=== PATIENT | female | born 1960 | race Caucasian/White ===

== ENCOUNTER 2017-03-24 10:29 | Inpatient (IN) ==
[2017-03-24] MEDS ORDERED: IPRATROPIUM/ALBUTEROL 3 ML AMPUL.NEB NEB ONE ×2 (10:38→10:45)
[2017-03-24] MEDS ORDERED: MAGNESIUM SULFATE 2 GM/50 ML BAG IV ONE (10:45)
[2017-03-24] MEDS ORDERED: AZITHROMYCIN 500 MG in DEXTROSE 5% IN WATER 250 ML IV ONE (10:45)
[2017-03-24] MEDS ORDERED: methylPREDNISolone SOD SUCC 125 MG/2 ML VIAL IV ONE (10:45)
[2017-03-24] MEDS ORDERED: DOXYCYCLINE HYCLATE 100 MG TABLET.ORL PO ONE ×2 (10:47→10:56)
[2017-03-24] MEDS ORDERED: ALBUTEROL SULFATE 5 MG/ML NEB SOLUTION BOTTLE NEB ONE (10:49)
[2017-03-24] MEDS ORDERED: MAGNESIUM SULFATE 8.12 MEQ/2 ML VIAL ONE (11:08)
--- NOTE | 2017-03-24 11:36 | XRay Report ---
CLINICAL INFORMATION: Shortness of breath and cough COMPARISON: 08/24/2016 FINDINGS: Heart size, mediastinum and pulmonary vessels are normal. Lung volumes are mildly elevated suggesting bronchitis or asthma. No infiltrates or effusions. Bones soft tissues normal IMPRESSION: Findings suggesting bronchitis or asthma. Interpreted and Authenticated by: Christiano Soto 03/24/17
[2017-03-24 11:42] LABS: Mean Cell Volume 97.7 fL (80.0-100.0); Mean Corpuscular Hemoglobin 33.3 pg (26.0-34.0); Platelet Count 219 K/mcL (140-440); RBC 4.19 M/mcL (4.00-5.20); Red Cell Distribution Width 13.1 % (11.5-14.5)
[2017-03-24 11:57] LABS: ALT/SGPT 10 U/l (0-40); Albumin 4.7 gm/dL (3.2-5.2); Albumin/Globulin Ratio 1.6 (1.0-2.3); Alkaline Phosphatase 70 U/L (39-117); Blood Urea Nitrogen 11 mg/dl (6-20)
[2017-03-24 12:03] LABS: Band Neutrophils % 1 % (0-10); Basophils % (Manual) 1 % (0-2); Lymphocytes % 17 % (15-49); Monocytes % (Manual) 12 % (1-12); Platelet Estimate NORMAL (NORMAL); RBC Morphology NORMAL (NORMAL); Segmented Neutrophils % 68 % (38-78)
--- NOTE | 2017-03-24 12:32 | Emergency Department Note ---
General Adult HPI - General Chief complaint: Shortness of Breath/Dyspnea Stated complaint: cold syptoms, SOB Time Seen by Provider: 03/24/17 10:37 Source: patient Mode of arrival: wheelchair Limitations: no limitations - History of Present Illness HPI Narrative: 56-year-old female with a 5 day history of worsening cough congestion and shortness of breath. She went to see her primary care doctor, Dr. Lebron who put her on azithromycin and a steroid. This has not been helping and in fact she has been getting worse. She comes in today very short of breath not being able to sleep well. She does endorse a history of being on oxygen but states that she is not on oxygen currently at home. - Related Data Home Medications Medication Instructions Recorded Confirmed aspirin 81 mg tablet,delayed 81 mg PO QDAY tab 11/18/14 03/24/17 release cholecalciferol (vitamin D3) 1,000 1,000 unit PO QDAY cap 11/18/14 03/24/17 unit capsule Vitamin B Complex Vit C No.3 [B 1 each PO DAILY 12/13/14 03/24/17 Complex with Vitamin C] Azithromycin [Zithromax] 250 mg PO DAILY 03/24/17 03/24/17 Lisinopril [Zestril] 5 mg PO QDAY 03/24/17 03/24/17 predniSONE [Prednisone] 10 tab PO .Complex 03/24/17 03/24/17 Previous Rx's Medication Instructions Recorded ipratropium-albuterol 0.5 mg-3 3 ml INHALATION QID PRN 90 Days 04/07/16 mg(2.5 mg base)/3 mL nebulization #1080 ml soln albuterol sulfate HFA 90 2 puff INHALATION QID PRN #18 g 08/08/16 mcg/actuation aerosol inhaler nebulizer and compressor See Dose Instructions .ROUTE 08/25/16 .MEDSUPPLY #1 each Pulse oximeter #1 each 08/29/16 fluticasone 100 mcg-vilanterol 25 1 inh INHALATION Q24H #30 each 12/11/16 mcg/dose powder for inhalation Allergies Allergy/AdvReac Type Severity Reaction Status Date / Time morphine [MORPHINE] Allergy Unknown Agitated Verified 03/19/17 16:29 Varenicline [From Chantix] AdvReac thoughts Verified 03/19/17 16:29 of hurting self Review of Systems All systems ED: reviewed and negative except as stated. Past Medical History - Past Medical History Attestation: Yes: The following information was validated with the patient. Medical history: Reports: COPD, CVA, hypertension (Did not take BP med today), TIA, other (hepatitis C) Surgical history ED: Reports: appendectomy, hysterectomy, REBECA/BSO, tonsillectomy Psychiatric history: Reports: anxiety STAGE HAND history: Reports: non-contributory - Social History smoking status: Current some day smoker Alcohol use: Reports: Occasionally Drug use: Reports: none Physical Exam Some acute distress from respiratory failure. Oxygen saturation in the 80s at rest. Initially given 1 round of DuoNeb but she is still not moving air well so we gave her an hour of continuous albuterol-breathing much better after that. Normocephalic atraumatic. Conjunctive are clear sclerae nonicteric. No nasal discharge or congestion. Oropharynx is pink and moist. Neck is supple without lymphadenopathy thyromegaly. Heart is tachycardic and rhythm no murmur appreciated. Lungs clear to auscultation bilaterally without rales but she does have significant rhonchi and wheezes after getting her albuterol. Abdomen soft nontender nondistended. No pedal edema. +2 radial pulse. Somewhat anxious secondary to difficulty breathing. Alert and oriented - General Limitations: no limitations Course Vital Signs Temperature 98.7 F 03/24/17 10:50 Pulse Rate 98 H 03/24/17 10:50 Respiratory Rate 20 03/24/17 10:50 Blood Pressure 152/98 03/24/17 10:50 Pulse Oximetry (%) 89 L 03/24/17 10:50 Temperature 98.7 F 03/24/17 10:50 Pulse Rate 102 H 03/24/17 14:29 Respiratory Rate 18 03/24/17 13:22 Blood Pressure 162/93 03/24/17 11:02 Pulse Oximetry (%) 93 03/24/17 14:29 Medical Decision Making - Medical Records Medical records reviewed: Yes I reviewed the patient's medical records. - Lab Data Lab results reviewed: Yes I reviewed the patient's lab results. Result diagrams: 03/24/17 11:14 03/24/17 11:14 Lab Results 03/24/17 03/24/17 Range/Units 11:14 11:14 WBC 5.9 (4.5-11.0) K/mcL RBC 4.19 (4.00-5.20) M/mcL Hgb 13.9 (12.0-15.0) g/dL Hct 40.9 (36.0-48.0) % MCV 97.7 (80.0-100.0) fL MCH 33.3 (26.0-34.0) pg MCHC 34.0 (31.0-36.0) g/dL RDW 13.1 (11.5-14.5) % Plt Count 219 (140-440) K/mcL MPV 7.9 (7.4-10.4) fL Total Counted 100 Seg Neutrophils % 68 (38-78) % Band Neutrophils % 1 (0-10) % Lymphocytes % 17 (15-49) % Monocytes % (Manual) 12 (1-12) % Basophils % (Manual) 1 (0-2) % Reactive Lymphocytes 1 (0-2) % Platelet Estimate Normal (NORMAL) RBC Morphology Normal (NORMAL) Sodium 142 (133-145) mmol/L Potassium 3.7 (3.3-5.1) mmol/L Chloride 100 (96-108) mmol/L Carbon Dioxide 28 (22-30) mmol/L Anion Gap 14.0 (8-16) BUN 11 (6-20) mg/dl Creatinine 0.7 (0.6-1.1) mg/dl GFR Calculation 96 Glucose 103 (70-105) mg/dL Calcium 9.7 (8.6-10.4) mg/dl Magnesium 2.0 (1.6-2.5) mg/dL Total Bilirubin 0.4 (0.0-1.0) mg/dL AST 15 (0-37) U/l ALT 10 (0-40) U/l Alkaline Phosphatase 70 (39-117) U/L Total Protein 7.6 (5.9-8.4) gm/dL Albumin 4.7 (3.2-5.2) gm/dL Globulin 2.9 (2.2-3.7) gm/dL Albumin/Globulin Ratio 1.6 (1.0-2.3) Care blood gas shows pH 7.41 PCO2 43 PO2 58 - Radiology Data Radiology results reviewed: Yes I reviewed the patient's radiology results. Chest x-ray is clear but show stigmata of COPD/asthma Disposition Pt seen by [employer]/PA only: No Clinical Impression: Acute exacerbation of chronic obstructive airways disease, Hypoxia Summary: Initially treated with doxycycline and Solu-Medrol as well as DuoNeb and albuterol as above. Significant improvement but still hypoxic on 85% at rest- on oxygen. Discussed scenario with Dr. Kerr who agreed to accept the patient for further inpatient treatment of COPD exacerbation. Disposition: Xfer As Outpt/Obs ([facility]) Condition: Fair Referrals: Antony Lebron MD [Primary Care Provider] -
--- NOTE | 2017-03-24 13:21 | Internal Med History&Physical ---
Medical - H&P: HPI Patient information: Note initiated : 03/24/17 at 1:17 pm Service Date, if different from initiated Date: [] Patient: Maryjane Gutierrez a 56 y/o F admitted on for cold syptoms, SOB. Chief Complaint: [] History of present illness: Ms. Gutierrez is a 56 year old Female with h/o copd presents ot e ER with sob x 1 week The patient notes she has been strugging with URI symptoms x 2 weeks and has been getting short of breath wheezing x 1-2 weeks. She was seen by her PCP and was placed on prednisone and zithromax and despite taking this medicatin she continued to worsen. She therefore presented to the ER for further management. 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 She also has exposure to kids who were sick. She denies taking the flu vac this season. The patient had watery eyes, sinus congestion, fatigue and malaise. cough with yellowish sputum and progressive shortness of breath over the peroid of 1-2 weeks. THe patient admits to having some headachea and nausea, but no other complaints. In the ER she was hypoxic on presentation, needing 2 L oxygen to maintain osat > 90%, she was given duonebs, HAART treatment, MAg suplhate and IV steroids, but still remained hypoxic, and having poor air entry. ABG done showed Ph 7.41/ 43/58, CXR was neg for pna, labs unremarkable. Patient was therefore admitted to the hospital for further management. All systems: reviewed and no additional remarkable complaints except as stated ( as per HPI) Medical - H&P: PMH Medical history: Medical History Transient Ischemia (Acute) CVA (cerebrovascular accident) (Acute) Pain, dental (Acute) Wrist fracture, right (Acute) Head and face pain (Acute) COPD exacerbation (Acute) Acute exacerbation of chronic obstructive airways disease (Acute) Hypoxia (Acute) Uterine malignant neoplasm (Acute) Hypoxemia (Acute) Hypertension, essential, benign (Acute 11/10/14) Depressive disorder (Acute) Chronic obstructive pulmonary disease (Acute) Carrier or suspected carrier of hepatitis C (Acute) History of breast cancer (Acute) Asthma with COPD (Acute) Anxiety disorder (Acute) Surgical history: Past Surgical History History of tonsillectomy (Acute) History of lumpectomy of right breast (Acute) History of lumpectomy of left breast (Acute) Status post partial hysterectomy (Acute) History of colonoscopy (Acute 03/16/14) History of appendectomy (Acute) Family history: reviewed and not pertinent Medical - H&P: Meds Home Medications Medication Instructions Recorded Confirmed Type aspirin 81 mg tablet,delayed 81 mg PO QDAY tab 11/18/14 03/24/17 History release cholecalciferol (vitamin D3) 1,000 1,000 unit PO QDAY cap 11/18/14 03/24/17 History unit capsule Vitamin B Complex Vit C No.3 [B 1 each PO DAILY 12/13/14 03/24/17 History Complex with Vitamin C] ipratropium-albuterol 0.5 mg-3 3 ml INHALATION QID PRN 90 Days 04/07/16 Rx mg(2.5 mg base)/3 mL nebulization #1080 ml soln albuterol sulfate HFA 90 2 puff INHALATION QID PRN #18 g 08/08/16 03/24/17 Rx mcg/actuation aerosol inhaler nebulizer and compressor See Dose Instructions .ROUTE 08/25/16 03/19/17 Rx .MEDSUPPLY #1 each Pulse oximeter #1 each 08/29/16 03/19/17 Rx fluticasone 100 mcg-vilanterol 25 1 inh INHALATION Q24H #30 each 12/11/16 Rx mcg/dose powder for inhalation Azithromycin [Zithromax] 250 mg PO DAILY 03/24/17 03/24/17 History Lisinopril [Zestril] 5 mg PO QDAY 03/24/17 03/24/17 History predniSONE [Prednisone] 10 tab PO .Complex 03/24/17 03/24/17 History Allergies Allergy/AdvReac Type Severity Reaction Status Date / Time morphine [MORPHINE] Allergy Unknown Agitated Verified 03/19/17 16:29 Varenicline [From Chantix] AdvReac thoughts Verified 03/19/17 16:29 of hurting self Medical - H&P: Exam - Constitutional Vitals: Temp Pulse Resp BP Pulse Ox 98.7 F 124 H 14 162/93 90 03/24/17 10:50 03/24/17 12:10 03/24/17 11:24 03/24/17 11:02 03/24/17 12:10 Exam: GENERAL: The patient is a well-developed, well-nourished in no apparent distress. Is alert and oriented x3. VITAL SIGNS: Reviewed and as noted elsewhere. HEENT: Head is normocephalic and atraumatic. Extraocular muscles are intact. Pupils are equal, round, and reactive to light. Nares appeared normal. Mouth appears any without lesions. Mucous membranes are moist. NECK: Normal to inspection, Supple, No lymphadenopathy or thyromegaly. LUNGS: Air entry equal on both sides but significantly diminished, colt exp wheezing and prolonged exp phase. NO . No accessory muscles of respiration, pt is speaking full sentences. HEART: Regular tachycardic rate and rhythm normal, S1 and S2 heard, no Gallop, S3 or Rub Noted, No Gross murmur heard. ABDOMEN: Soft, nontender, and nondistended. Positive bowel sounds. No hepatosplenomegaly was noted. EXTREMITIES: No cyanosis, clubbing, rash, lesions or edema. NEUROLOGIC: Cranial nerves II through XII are grossly intact. Motor and Sensory System Grossly Intact PSYCHIATRIC: Normal affect, Normal Mood. Appropriate Behavior. SKIN: No ulceration or wounds noted, No jaundice, No rash noted. Medical - H&P: Reslt - Labs CBC & Chem 7: 03/24/17 11:14 03/24/17 11:14 Labs: Short CBC 03/24/17 Range/Units 11:14 WBC 5.9 (4.5-11.0) K/mcL Hgb 13.9 (12.0-15.0) g/dL Hct 40.9 (36.0-48.0) % Plt Count 219 (140-440) K/mcL BMP 03/24/17 11:14 Sodium 142 Potassium 3.7 Chloride 100 Carbon Dioxide 28 BUN 11 Creatinine 0.7 Glucose 103 Calcium 9.7 Liver Function 03/24/17 Range/Units 11:14 Total Bilirubin 0.4 (0.0-1.0) mg/dL AST 15 (0-37) U/l ALT 10 (0-40) U/l Alkaline Phosphatase 70 (39-117) U/L Albumin 4.7 (3.2-5.2) gm/dL Medical - H&P: A/P - Narrative A/P Narrative: A/p Acute hypoxic resp failuire Acute copd exacerbation Depression HTN h/o TIA Plan Admit obs status , Telemetery monitor Duonebs q4 hrs, IV solumedrol. Doxycycline 100mg bid for now. monitor resp status closely supplement oxygen to keep osat > 90 BIPAP if patient worsens. Resume home medications. antidepressants, statin, asa and bp meds. DVT hep sq REgular diet Full Code. Social History - Tobacco smoking status: Current some day smoker - Cigarette Details per day: 10 - Alcohol alcohol intake frequency: a few times a week - Substance use substance use type: marijuana
[2017-03-24] MEDS ORDERED: IBUPROFEN 600 MG TABLET PO ONE ×2 (14:43→14:49)
[2017-03-24] MEDS ORDERED: MAGNESIUM HYDROXIDE 30 ML ORAL.SUSP PO PRN (15:02)
[2017-03-24] MEDS ORDERED: ACETAMINOPHEN 325 MG TABLET PO PRN (15:02)
[2017-03-24] MEDS ORDERED: ONDANSETRON 4 MG/2 ML VIAL IV PRN (15:02)
[2017-03-24] MEDS ORDERED: NALOXONE HCL 0.4 MG/ML VIAL IV PRN (15:02)
[2017-03-24] MEDS: 0.9 % SODIUM CHLORIDE 1,000 ML IV SCH (15:43)
[2017-03-24] MEDS: 0.9 % SODIUM CHLORIDE 10 ML SYRINGE IV SCH ×2 (15:44→22:36)
[2017-03-24] MEDS: IPRATROPIUM/ALBUTEROL 3 ML AMPUL.NEB NEB SCH ×3 (16:36→23:40)
[2017-03-24] MEDS: methylPREDNISolone SOD SUCC 125 MG/2 ML VIAL IV SCH (17:48)
[2017-03-24] MEDS: FAMOTIDINE 20 MG TABLET PO SCH (20:15)
[2017-03-24] MEDS: LORazepam 1 MG TABLET PO PRN (20:15)
[2017-03-24] MEDS: DOXYCYCLINE HYCLATE 100 MG TABLET.ORL PO SCH (20:15)
[2017-03-24] MEDS: HYDROcodone/APAP 5/325MG TABLET PO PRN (20:16)
[2017-03-25] MEDS ORDERED: LORazepam 2 MG/ML VIAL IV PRN (01:12)
[2017-03-25] MEDS ORDERED: LORazepam 2 MG/ML VIAL ONE (01:23)
[2017-03-25] MEDS: methylPREDNISolone SOD SUCC 125 MG/2 ML VIAL IV SCH ×4 (03:06→17:53)
[2017-03-25] MEDS: IPRATROPIUM/ALBUTEROL 3 ML AMPUL.NEB NEB SCH ×6 (03:09→22:36)
[2017-03-25] MEDS: 0.9 % SODIUM CHLORIDE 1,000 ML IV SCH (04:44)
[2017-03-25 05:55] LABS: Basophils # (Auto) 0 K/mcL (0.0-0.3); Basophils % (Auto) 0 % (0.0-2.0); Eosinophils # (Auto) 0 K/mcL (0.0-0.7); Eosinophils % (Auto) 0.4 % (0.0-7.0); Granulocytes % (Auto) 85.9 % (38.0-78.0); Lymphocytes # (Auto) 0.4 K/mcL (1.5-4.8); Lymphocytes % (Auto) 6.4 % (15.5-49.0); Mean Cell Volume 98.9 fL (80.0-100.0); Mean Corpuscular HGB Conc 33.7 g/dL (31.0-36.0); Mean Corpuscular Hemoglobin 33.3 pg (26.0-34.0); Monocytes # (Auto) 0.4 K/mcL (0.1-0.9); Monocytes % (Auto) 7.3 % (1.0-12.0); Platelet Count 216 K/mcL (140-440); RBC 4.14 M/mcL (4.00-5.20); Red Cell Distribution Width 13.5 % (11.5-14.5)
[2017-03-25 06:46] LABS: ALT/SGPT 12 U/l (0-40); Albumin 4.5 gm/dL (3.2-5.2); Albumin/Globulin Ratio 1.7 (1.0-2.3); Alkaline Phosphatase 68 U/L (39-117); Bilirubin,Direct < 0.2 mg/dL (0.0-0.3); Blood Urea Nitrogen 13 mg/dl (6-20); Gamma Glutamyl Transpeptidase 26 U/L (5-36); Magnesium 2.2 mg/dL (1.6-2.5); Uric Acid 3.5 mg/dL (2.5-8.0)
[2017-03-25] MEDS: ENOXAPARIN 40 MG/0.4 ML SYRINGE SQ SCH (08:04)
[2017-03-25] MEDS: FAMOTIDINE 20 MG TABLET PO SCH ×2 (08:04→20:50)
[2017-03-25] MEDS: DOXYCYCLINE HYCLATE 100 MG TABLET.ORL PO SCH ×2 (08:04→20:50)
[2017-03-25] MEDS: ASPIRIN 81 MG TAB.CHEW PO SCH (08:04)
[2017-03-25] MEDS: LISINOPRIL 5 MG TABLET PO SCH (08:11)
--- NOTE | 2017-03-25 11:23 | Internal Med Progress Note ---
Medical - PN: Subj Patient information: Note initiated : 03/25/17 at 11:11 am Service Date, if different from initiated Date: [] Patient: Maryjane Gutierrez 56 y/o F admitted on 03/24/17 for cold syptoms, SOB. Chief Complaint: [] Interval history: Ms. Gutierrez is a 56 year old Female with h/o copd presents ot hte ER with sob x 1 week The patient notes she has been strugging with URI symptoms x 2 weeks and has been getting short of breath wheezing x 1-2 weeks. She was seen by her PCP and was placed on prednisone and zithromax and despite taking this medicatin she continued to worsen. She therefore presented to the ER for further management. 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 She also has exposure to kids who were sick. She denies taking the flu vac this season. The patient had watery eyes, sinus congestion, fatigue and malaise. cough with yellowish sputum and progressive shortness of breath over the period of 1-2 weeks. THe patient admits to having some headache and nausea, but no other complaints. In the ER she was hypoxic on presentation, needing 2 L oxygen to maintain osat > 90%, she was given duonebs, HAART treatment, MAg suplhate and IV steroids, but still remained hypoxic, and having poor air entry. ABG done showed Ph 7.41/ 43/58, CXR was neg for pna, labs unremarkable. Patient was therefore admitted to the hospital for further management. March 25 Patient seen examined, overnight events noted, she had a few episodes of panic attack overnight which necessitated use of ativan to which the patient responded well She still is short of breath and is wheezing, cough still present, yellowish sputum present. no other issues. Pertinent ROS: Denies headache, dizziness Denies chest pain, palpitations present cough and shortness of breath. stable Denies abdominal pain, nausea or vomiting. - Constitutional Vitals: Vital Signs Temp Pulse Resp BP Pulse Ox 98.3 F 103 H 18 146/100 90 03/25/17 07:08 03/25/17 11:07 03/25/17 11:07 03/25/17 07:14 03/25/17 07:08 Period Temp Pulse Resp BP Sys/Rodriguez Pulse Ox Last 24 Hr 98.0 F-98.7 F 85-124 14-24 125-172/78-114 87-97 Intake and Output 03/24/17 03/25/17 03/25/17 21:59 05:59 13:59 Intake Total 240 / 240 976 / 976 660 / 660 Output Total 750 / 750 350 / 350 Balance -510 / -510 976 / 976 310 / 310 Weight 168 lb 4.8 oz Intake & Output: Intake & Output 03/24/17 03/25/17 03/25/17 21:59 05:59 13:59 Intake Total 240 / 240 976 / 976 660 / 660 Output Total 750 / 750 350 / 350 Balance -510 / -510 976 / 976 310 / 310 Weight 168 lb 4.8 oz Intake: IV 976 / 976 Sodium Chloride 0.9% 1,000 ml @ 976 / 976 75 mls/hr IV .[id number] [facility] Rx#: [id number] Oral 240 / 240 660 / 660 Output: Void Amount 750 / 750 350 / 350 Other: Meal Dinner Breakfast Percent of Meal Consumed 100% 100% Feeding Ability Assist with Tray Set Up Independent # Voids 1 # Bowel Movements 0 Exam: Constitutional; Afebrile, cooperative, alert, not in distress. Eyes- No icterus, , No periorbital swelling Ears- Ext ear normal, hearing normal to conversation. Neck- Midline trachea, supple Respiratory system: Air Entry equal on both sides, signficantly decreaed air entry, colt exp wheezing present. able to speak full sentences, no accessory muscle use. CVS- Rate rhythm regular, S1,S2 heard, no gallop, no rub. Abdomen- Soft nontender abdomen, no organomegaly, no tenderness, no guarding or rigidity, [employer]- AOOx3, moving all extremities, no gross focal deficit noted. Medical - PN: Obj Da - Labs CBC & Chem 7: 03/25/17 03:45 03/25/17 03:45 Labs: Abnormal Lab Results 03/25/17 03/25/17 03:45 03:45 Gran % 85.9 H Lymph % (Auto) 6.4 L Lymph # (Auto) 0.4 L Glucose 149 H Meds: Medications Acetaminophen (Tylenol) 650 mg PO Q6HP PRN PRN Reason: PAIN/FEVER > 101 Hydrocodone Bitart/Acetaminophen ([place] 5/325mg) 1 tab PO Q4HP PRN PRN Reason: Pain Last Admin: 03/24/17 20:16 Dose: 1 tab Albuterol/Ipratropium (Duoneb) 3 ml NEB Q4HRT [facility] Last Admin: 03/25/17 11:05 Dose: 3 ml Aspirin (Aspirin) 81 mg PO DAILY [facility] Last Admin: 03/25/17 08:04 Dose: 81 mg Doxycycline Hyclate (Doxycycline Hyclate) 100 mg PO BID [facility] Last Admin: 03/25/17 08:04 Dose: 100 mg Enoxaparin Sodium (Lovenox) 40 mg SQ DAILY [facility] Last Admin: 03/25/17 08:04 Dose: 40 mg Famotidine (Pepcid) 20 mg PO BID [facility] Last Admin: 03/25/17 08:04 Dose: 20 mg Sodium Chloride (Sodium Chloride 0.9%) 1,000 mls @ 75 mls/hr IV .[id number] [facility] Stop: 03/25/17 17:41 Last Admin: 03/25/17 04:44 Dose: 75 mls/hr Lisinopril (Zestril) 5 mg PO DAILY [facility] Last Admin: 03/25/17 08:11 Dose: 5 mg Lorazepam (Ativan) 1 mg PO BIDP PRN PRN Reason: ANXIETY/SEDATION Last Admin: 03/24/17 20:15 Dose: 1 mg Lorazepam (Ativan) 1 mg IV Q2-4HP PRN PRN Reason: ANXIETY/SEDATION Magnesium Hydroxide (Milk Of Magnesia) 30 ml PO DAILYP PRN PRN Reason: Constipation Methylprednisolone Sodium Succinate (Solu-Medrol) 62.5 mg IV Q6 [facility] Last Admin: 03/25/17 08:03 Dose: 62.5 mg Naloxone HCl (Narcan) 0.1 mg IV Q2MIN PRN PRN Reason: Opiate Reversal Ondansetron HCl (Zofran) 4 mg IV Q4HP PRN PRN Reason: Nausea And Vomiting Sodium Chloride (Saline Flush) 10 ml IV Q8 [facility] Last Admin: 03/24/17 22:36 Dose: Not Given Medical - PN: A/P - Time Spent With Patient Total time spent is greater than 50% in coordination of care (as documented) at patient's floor/unit and/or counseling patient: - Narrative A/P Narrative: A/p Acute hypoxic resp failuire Acute copd exacerbation Depression HTN h/o TIA Anxiety/ Panic attacks Plan Continue to monitor. Pt stable but not much improvement Continue Duonebs q4 hrs, IV solumedrol. Doxycycline 100mg bid monitor resp status closely bipap if worsens. supplement oxygen to keep osat > 90 on 2-3L oxygen. continue home medications. antidepressants, statin, asa and bp meds. pt reports she takes ativan at home (not on her home med list) will use prn ativan for anxiety for now. DVT hep sq REgular diet Full Code. Medical - PN: Qual - Stroke Symptom Onset Unknown: No - VTE Deep Vein Thrombosis/Pulmonary Embolism Present on Admission: No
[2017-03-25] MEDS: HYDROcodone/APAP 5/325MG TABLET PO PRN ×2 (11:28→20:49)
[2017-03-25] MEDS: guaiFENesin/DEXTROMETHORPHAN ORAL SOL PO PRN ×3 (12:24→21:04)
[2017-03-25] MEDS: 0.9 % SODIUM CHLORIDE 10 ML SYRINGE IV SCH ×3 (12:26→20:50)
[2017-03-25] MEDS: LORazepam 1 MG TABLET PO PRN (20:49)
[2017-03-26] MEDS: methylPREDNISolone SOD SUCC 125 MG/2 ML VIAL IV SCH ×5 (01:00→23:09)
[2017-03-26] MEDS: IPRATROPIUM/ALBUTEROL 3 ML AMPUL.NEB NEB SCH ×6 (03:07→22:56)
[2017-03-26] MEDS: 0.9 % SODIUM CHLORIDE 10 ML SYRINGE IV SCH ×3 (05:19→20:21)
[2017-03-26 05:33] LABS: Basophils # (Auto) 0 K/mcL (0.0-0.3); Basophils % (Auto) 0 % (0.0-2.0); Eosinophils # (Auto) 0.1 K/mcL (0.0-0.7); Eosinophils % (Auto) 0.5 % (0.0-7.0); Granulocytes % (Auto) 82.9 % (38.0-78.0); Lymphocytes # (Auto) 0.9 K/mcL (1.5-4.8); Mean Cell Volume 98.7 fL (80.0-100.0); Mean Corpuscular HGB Conc 33.8 g/dL (31.0-36.0); Mean Corpuscular Hemoglobin 33.4 pg (26.0-34.0); Monocytes # (Auto) 0.9 K/mcL (0.1-0.9); Monocytes % (Auto) 8.6 % (1.0-12.0); Platelet Count 210 K/mcL (140-440); RBC 3.83 M/mcL (4.00-5.20); Red Cell Distribution Width 13.1 % (11.5-14.5)
[2017-03-26 06:01] LABS: ALT/SGPT 9 U/l (0-40); Albumin/Globulin Ratio 1.6 (1.0-2.3); Alkaline Phosphatase 59 U/L (39-117); Bilirubin,Direct < 0.2 mg/dL (0.0-0.3); Blood Urea Nitrogen 20 mg/dl (6-20); Gamma Glutamyl Transpeptidase 24 U/L (5-36); Uric Acid 3.2 mg/dL (2.5-8.0)
[2017-03-26] MEDS: ENOXAPARIN 40 MG/0.4 ML SYRINGE SQ SCH (09:18)
[2017-03-26] MEDS: LISINOPRIL 5 MG TABLET PO SCH (09:18)
[2017-03-26] MEDS: ASPIRIN 81 MG TAB.CHEW PO SCH (09:18)
[2017-03-26] MEDS: DOXYCYCLINE HYCLATE 100 MG TABLET.ORL PO SCH ×2 (09:18→20:20)
[2017-03-26] MEDS: FAMOTIDINE 20 MG TABLET PO SCH ×2 (09:18→20:20)
[2017-03-26] MEDS: guaiFENesin/DEXTROMETHORPHAN ORAL SOL PO PRN ×2 (10:43→18:45)
[2017-03-26] MEDS ORDERED: HYDROcodone/APAP 5/325MG TABLET PO PRN (12:24)
[2017-03-26] MEDS ORDERED: ACETAMINOPHEN 325 MG TABLET PO PRN (12:24)
[2017-03-26] MEDS ORDERED: NALOXONE HCL 0.4 MG/ML VIAL IV PRN (12:24)
[2017-03-26] MEDS ORDERED: LORazepam 2 MG/ML VIAL IV PRN (12:24)
[2017-03-26] MEDS ORDERED: MAGNESIUM HYDROXIDE 30 ML ORAL.SUSP PO PRN (12:24)
[2017-03-26] MEDS ORDERED: ONDANSETRON 4 MG/2 ML VIAL IV PRN (12:24)
--- NOTE | 2017-03-26 15:39 | Internal Med Progress Note ---
Medical - PN: Subj Patient information: Note initiated : 03/26/17 at 3:37 pm Service Date, if different from initiated Date: [] Patient: Maryjane Gutierrez 56 y/o F admitted on 03/24/17 for Cold Symptoms, SOB /Hypoxia, COPD. Chief Complaint: [] Interval history: Ms. Gutierrez is a 56 year old Female with h/o copd presents ot hte ER with sob x 1 week The patient notes she has been strugging with URI symptoms x 2 weeks and has been getting short of breath wheezing x 1-2 weeks. She was seen by her PCP and was placed on prednisone and zithromax and despite taking this medicatin she continued to worsen. She therefore presented to the ER for further management. 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 She also has exposure to kids who were sick. She denies taking the flu vac this season. The patient had watery eyes, sinus congestion, fatigue and malaise. cough with yellowish sputum and progressive shortness of breath over the period of 1-2 weeks. THe patient admits to having some headache and nausea, but no other complaints. In the ER she was hypoxic on presentation, needing 2 L oxygen to maintain osat > 90%, she was given duonebs, HAART treatment, MAg suplhate and IV steroids, but still remained hypoxic, and having poor air entry. ABG done showed Ph 7.41/ 43/58, CXR was neg for pna, labs unremarkable. Patient was therefore admitted to the hospital for further management. March 25 Patient seen examined, overnight events noted, she had a few episodes of panic attack overnight which necessitated use of ativan to which the patient responded well She still is short of breath and is wheezing, cough still present, yellowish sputum present. no other issues. March 26 Patient seen examined, no acute overnight issues still has cough and sob, but much better than day of admission does have anxiety issues at night needing ativan, but no other compliants. still on oxygen Pertinent ROS: Denies headache, dizziness Denies chest pain, palpitations cough or shortness of breath Improving. Denies abdominal pain, nausea or vomiting. - Constitutional Vitals: Vital Signs Temp Pulse Resp BP Pulse Ox 98.1 F 100 H 18 129/84 95 03/26/17 15:35 03/26/17 15:16 03/26/17 15:35 03/26/17 15:35 03/26/17 15:35 Period Temp Pulse Resp BP Sys/Rodriguez Pulse Ox Last 24 Hr 97.7 F-98.5 F 86-100 16-20 126-136/50-90 93-97 Intake and Output 03/26/17 03/26/17 03/26/17 05:59 13:59 21:59 Intake Total 600 / 600 600 / 600 240 / 240 Balance 600 / 600 600 / 600 240 / 240 Intake & Output: Intake & Output 03/26/17 03/26/17 03/26/17 05:59 13:59 21:59 Intake Total 600 / 600 600 / 600 240 / 240 Balance 600 / 600 600 / 600 240 / 240 Intake: Oral 600 / 600 600 / 600 240 / 240 Other: Meal Lunch Percent of Meal Consumed 100% Feeding Ability Independent # Voids 1 Exam: Constitutional; Afebrile, cooperative, alert, not in distress. Eyes- No icterus, , No periorbital swelling Ears- Ext ear normal, hearing normal to conversation. Neck- Midline trachea, supple Respiratory system: Air Entry equal on both sides, No crackles no rhonchi. colt exp wheezing. improved air entry since yesterday CVS- Rate rhythm regular, S1,S2 heard, no gallop, no rub. 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 Medical - PN: Obj Da - Labs CBC & Chem 7: 03/26/17 04:00 03/26/17 04:00 Labs: Abnormal Lab Results 03/26/17 03/25/17 03/25/17 04:00 03:45 03:45 RBC 3.83 L Gran % 82.9 H 85.9 H Lymph % (Auto) 8.0 L 6.4 L Gran # 9.0 H Lymph # (Auto) 0.9 L 0.4 L Glucose 149 H Meds: Medications Acetaminophen (Tylenol) 650 mg PO Q6HP PRN PRN Reason: PAIN/FEVER > 101 Hydrocodone Bitart/Acetaminophen ([place] 5/325mg) 1 tab PO Q4HP PRN PRN Reason: Pain Albuterol/Ipratropium (Duoneb) 3 ml NEB Q4HRT ON LICENSE OF [facility] Last Admin: 03/26/17 15:09 Dose: 3 ml Aspirin (Aspirin) 81 mg PO DAILY [facility] OF [facility] Doxycycline Hyclate (Doxycycline Hyclate) 100 mg PO BID ON [facility] OF [facility] Enoxaparin Sodium (Lovenox) 40 mg SQ DAILY ON [facility] OF [facility] Famotidine (Pepcid) 20 mg PO BID ON LICENSE OF [facility] Guaifenesin (Robitussin Dm) 10 ml PO Q4HP PRN PRN Reason: Cough Lisinopril (Zestril) 5 mg PO DAILY ON [facility] Lorazepam (Ativan) 1 mg PO BIDP PRN PRN Reason: ANXIETY/SEDATION Lorazepam (Ativan) 1 mg IV Q2-4HP PRN PRN Reason: ANXIETY/SEDATION Magnesium Hydroxide (Milk Of Magnesia) 30 ml PO DAILYP PRN PRN Reason: Constipation Methylprednisolone Sodium Succinate (Solu-Medrol) 62.5 mg IV Q6 ON LICENSE OF [facility] Naloxone HCl (Narcan) 0.1 mg IV Q2MIN PRN PRN Reason: Opiate Reversal Ondansetron HCl (Zofran) 4 mg IV Q4HP PRN PRN Reason: Nausea And Vomiting Sodium Chloride (Saline Flush) 10 ml IV Q8 ON LICENSE OF [facility] Last Admin: 03/26/17 14:11 Dose: 10 ml Medical - PN: A/P - Time Spent With Patient Total time spent is greater than 50% in coordination of care (as documented) at patient's floor/unit and/or counseling patient: - Narrative A/P Narrative: A/p Acute hypoxic resp failuire Acute copd exacerbation Depression HTN h/o TIA Anxiety/ Panic attacks Plan Pt clinically improving, labs ok, continue present treatment Continue Duonebs q4 hrs, IV solumedrol. Doxycycline 100mg bid supplement oxygen to keep osat > 90 on 2-3L oxygen. continue home medications. antidepressants, statin, asa and bp meds. pt reports she takes ativan at home (not on her home med list) will use prn ativan for anxiety for now. DVT hep sq REgular diet Full Code. anticipate d/c home in 1-2 days with steroid taper Medical - PN: Qual - Stroke Symptom Onset Unknown: No - VTE Deep Vein Thrombosis/Pulmonary Embolism Present on Admission: No
[2017-03-26] MEDS: LORazepam 1 MG TABLET PO PRN (20:20)
[2017-03-27] MEDS: IPRATROPIUM/ALBUTEROL 3 ML AMPUL.NEB NEB SCH ×6 (03:33→23:07)
[2017-03-27] MEDS: guaiFENesin/DEXTROMETHORPHAN ORAL SOL PO PRN ×4 (04:17→20:05)
[2017-03-27 05:11] LABS: Basophils # (Auto) 0 K/mcL (0.0-0.3); Basophils % (Auto) 0.1 % (0.0-2.0); Eosinophils # (Auto) 0.1 K/mcL (0.0-0.7); Eosinophils % (Auto) 0.6 % (0.0-7.0); Granulocytes % (Auto) 91.3 % (38.0-78.0); Lymphocytes # (Auto) 0.5 K/mcL (1.5-4.8); Lymphocytes % (Auto) 5.8 % (15.5-49.0); Mean Cell Volume 99.8 fL (80.0-100.0); Mean Corpuscular HGB Conc 33.4 g/dL (31.0-36.0); Mean Corpuscular Hemoglobin 33.3 pg (26.0-34.0); Monocytes # (Auto) 0.2 K/mcL (0.1-0.9); Monocytes % (Auto) 2.2 % (1.0-12.0); Platelet Count 241 K/mcL (140-440); RBC 4.13 M/mcL (4.00-5.20)
[2017-03-27 05:34] LABS: ALT/SGPT 13 U/l (0-40); Albumin 4.4 gm/dL (3.2-5.2); Albumin/Globulin Ratio 1.6 (1.0-2.3); Alkaline Phosphatase 60 U/L (39-117); Bilirubin,Direct < 0.2 mg/dL (0.0-0.3); Blood Urea Nitrogen 19 mg/dl (6-20); Gamma Glutamyl Transpeptidase 28 U/L (5-36); Uric Acid 3.6 mg/dL (2.5-8.0)
[2017-03-27] MEDS: methylPREDNISolone SOD SUCC 125 MG/2 ML VIAL IV SCH ×5 (06:30→23:47)
[2017-03-27] MEDS: 0.9 % SODIUM CHLORIDE 10 ML SYRINGE IV SCH ×3 (06:30→20:08)
[2017-03-27] MEDS: ASPIRIN 81 MG TAB.CHEW PO SCH (10:00)
[2017-03-27] MEDS: FAMOTIDINE 20 MG TABLET PO SCH ×2 (10:00→20:05)
[2017-03-27] MEDS: LISINOPRIL 5 MG TABLET PO SCH (10:01)
[2017-03-27] MEDS: ENOXAPARIN 40 MG/0.4 ML SYRINGE SQ SCH (10:02)
[2017-03-27] MEDS: DOXYCYCLINE HYCLATE 100 MG TABLET.ORL PO SCH ×2 (10:02→20:05)
--- NOTE | 2017-03-27 11:18 | Internal Med Progress Note ---
Medical - PN: Subj Patient information: Note initiated : 03/27/17 at 11:15 am Service Date, if different from initiated Date: [] Patient: Maryjane Gutierrez 56 y/o F admitted on 03/24/17 for Cold Symptoms, SOB /Hypoxia, COPD. Chief Complaint: [] Interval history: Ms. Gutierrez is a 56 year old Female with h/o copd presents ot e ER with sob x 1 week The patient notes she has been strugging with URI symptoms x 2 weeks and has been getting short of breath wheezing x 1-2 weeks. She was seen by her PCP and was placed on prednisone and zithromax and despite taking this medicatin she continued to worsen. She therefore presented to the ER for further management. 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 She also has exposure to kids who were sick. She denies taking the flu vac this season. The patient had watery eyes, sinus congestion, fatigue and malaise. cough with yellowish sputum and progressive shortness of breath over the period of 1-2 weeks. THe patient admits to having some headache and nausea, but no other complaints. In the ER she was hypoxic on presentation, needing 2 L oxygen to maintain osat > 90%, she was given duonebs, HAART treatment, MAg suplhate and IV steroids, but still remained hypoxic, and having poor air entry. ABG done showed Ph 7.41/ 43/58, CXR was neg for pna, labs unremarkable. Patient was therefore admitted to the hospital for further management. March 25 Patient seen examined, overnight events noted, she had a few episodes of panic attack overnight which necessitated use of ativan to which the patient responded well She still is short of breath and is wheezing, cough still present, yellowish sputum present. no other issues. March 26 Patient seen examined, no acute overnight issues still has cough and sob, but much better than day of admission does have anxiety issues at night needing ativan, but no other compliants. still on oxygen March 27 Patient seen examined, no acute overnight issues slept well tolerating po well gets sob and dizzy when she tries to ambulate but breating is better still wheezing and remains on oxygen. Pertinent ROS: Denies headache, Denies chest pain, palpitations improved cough and sob Denies abdominal pain, nausea or vomiting. - Constitutional Vitals: Vital Signs Temp Pulse Resp BP Pulse Ox 98.2 F 98 H 16 137/88 95 03/27/17 07:14 03/27/17 10:58 03/27/17 10:58 03/27/17 07:14 03/27/17 07:22 Period Temp Pulse Resp BP Sys/Rodriguez Pulse Ox Last 24 Hr 98.0 F-98.4 F 82-100 16-18 129-145/79-90 92-96 Intake and Output 03/26/17 03/27/17 03/27/17 21:59 05:59 13:59 Intake Total 1040 / 1040 440 / 440 1200 / 1200 Balance 1040 / 1040 440 / 440 1200 / 1200 Weight 169 lb Intake & Output: Intake & Output 03/26/17 03/27/17 03/27/17 21:59 05:59 13:59 Intake Total 1040 / 1040 440 / 440 1200 / 1200 Balance 1040 / 1040 440 / 440 1200 / 1200 Weight 169 lb Intake: Oral 1040 / 1040 440 / 440 1200 / 1200 Other: Meal Breakfast Percent of Meal Consumed 100% Feeding Ability Independent # Voids 1 Exam: Constitutional; Afebrile, cooperative, alert, not in distress. Eyes- No icterus, , No periorbital swelling Ears- Ext ear normal, hearing normal to conversation. Neck- Midline trachea, supple Respiratory system: Air Entry equal on both sides, No crackles, bilateral wheezing present. CVS- Rate rhythm regular, S1,S2 heard, no gallop, no rub. 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 Medical - PN: Obj Da - Labs CBC & Chem 7: 03/27/17 04:15 03/27/17 04:15 Labs: Abnormal Lab Results 03/27/17 03/27/17 03/26/17 04:15 04:15 04:00 RBC 3.83 L Gran % 91.3 H 82.9 H Lymph % (Auto) 5.8 L 8.0 L Gran # 9.0 H Lymph # (Auto) 0.5 L 0.9 L Glucose 136 H Phosphorus 4.7 H 03/25/17 03/25/17 03:45 03:45 RBC Gran % 85.9 H Lymph % (Auto) 6.4 L Gran # Lymph # (Auto) 0.4 L Glucose 149 H Phosphorus Meds: Medications Acetaminophen (Tylenol) 650 mg PO Q6HP PRN PRN Reason: PAIN/FEVER > 101 Hydrocodone Bitart/Acetaminophen ([place] 5/325mg) 1 tab PO Q4HP PRN PRN Reason: Pain Albuterol/Ipratropium (Duoneb) 3 ml NEB Q4HRT [facility] Last Admin: 03/27/17 10:55 Dose: 3 ml Aspirin (Aspirin) 81 mg PO DAILY [facility] Last Admin: 03/27/17 10:00 Dose: 81 mg Doxycycline Hyclate (Doxycycline Hyclate) 100 mg PO BID [facility] Last Admin: 03/27/17 10:02 Dose: 100 mg Enoxaparin Sodium (Lovenox) 40 mg SQ DAILY [facility] Last Admin: 03/27/17 10:02 Dose: 40 mg Famotidine (Pepcid) 20 mg PO BID [facility] Last Admin: 03/27/17 10:00 Dose: 20 mg Guaifenesin (Robitussin Dm) 10 ml PO Q4HP PRN PRN Reason: Cough Last Admin: 03/27/17 04:17 Dose: 10 ml Lisinopril (Zestril) 5 mg PO DAILY [facility] Last Admin: 03/27/17 10:01 Dose: 5 mg Lorazepam (Ativan) 1 mg PO BIDP PRN PRN Reason: ANXIETY/SEDATION Last Admin: 03/26/17 20:20 Dose: 1 mg Lorazepam (Ativan) 1 mg IV Q2-4HP PRN PRN Reason: ANXIETY/SEDATION Magnesium Hydroxide (Milk Of Magnesia) 30 ml PO DAILYP PRN PRN Reason: Constipation Methylprednisolone Sodium Succinate (Solu-Medrol) 62.5 mg IV Q6 [facility] Last Admin: 03/27/17 06:30 Dose: 62.5 mg Naloxone HCl (Narcan) 0.1 mg IV Q2MIN PRN PRN Reason: Opiate Reversal Ondansetron HCl (Zofran) 4 mg IV Q4HP PRN PRN Reason: Nausea And Vomiting Sodium Chloride (Saline Flush) 10 ml IV Q8 [facility] Last Admin: 03/27/17 06:30 Dose: 10 ml Medical - PN: A/P - Time Spent With Patient Total time spent is greater than 50% in coordination of care (as documented) at patient's floor/unit and/or counseling patient: - Narrative A/P Narrative: A/p Acute hypoxic resp failuire Acute copd exacerbation Depression HTN h/o TIA Anxiety/ Panic attacks Plan Pt clinically improving, labs ok, continue present treatment Continue Duonebs q4 hrs, IV solumedrol. Doxycycline 100mg bid supplement oxygen to keep osat > 90 on 2-3L oxygen. wean off oxygen as tolerated , goal osat 88-92, aggresive pulmonary toilet. continue home medications. antidepressants, statin, asa and bp meds. pt reports she takes Ativan at home (not on her home med list) will use prn Ativan for anxiety for now. DVT hep sq Regular diet Full Code. Medical - PN: Qual - Stroke Symptom Onset Unknown: No - VTE Deep Vein Thrombosis/Pulmonary Embolism Present on Admission: No
[2017-03-27] MEDS: LORazepam 1 MG TABLET PO PRN (20:05)
[2017-03-28] MEDS: IPRATROPIUM/ALBUTEROL 3 ML AMPUL.NEB NEB SCH ×6 (03:09→23:08)
[2017-03-28] MEDS: guaiFENesin/DEXTROMETHORPHAN ORAL SOL PO PRN ×4 (03:17→21:13)
[2017-03-28] MEDS: methylPREDNISolone SOD SUCC 125 MG/2 ML VIAL IV SCH ×4 (05:13→23:51)
[2017-03-28] MEDS: 0.9 % SODIUM CHLORIDE 10 ML SYRINGE IV SCH ×3 (05:14→23:51)
[2017-03-28] MEDS: FAMOTIDINE 20 MG TABLET PO SCH ×2 (10:01→21:07)
[2017-03-28] MEDS: ASPIRIN 81 MG TAB.CHEW PO SCH (10:02)
[2017-03-28] MEDS: DOXYCYCLINE HYCLATE 100 MG TABLET.ORL PO SCH ×2 (10:03→21:07)
[2017-03-28] MEDS: LISINOPRIL 5 MG TABLET PO SCH (10:04)
[2017-03-28] MEDS: ENOXAPARIN 40 MG/0.4 ML SYRINGE SQ SCH (10:05)
[2017-03-28 11:03] LABS: ALT/SGPT 10 U/l (0-40); Albumin 3.9 gm/dL (3.2-5.2); Albumin/Globulin Ratio 1.7 (1.0-2.3); Alkaline Phosphatase 56 U/L (39-117); Basophils # (Auto) 0 K/mcL (0.0-0.3); Basophils % (Auto) 0.2 % (0.0-2.0); Bilirubin,Direct < 0.2 mg/dL (0.0-0.3); Blood Urea Nitrogen 22 mg/dl (6-20); Eosinophils # (Auto) 0 K/mcL (0.0-0.7); Eosinophils % (Auto) 0.4 % (0.0-7.0); Gamma Glutamyl Transpeptidase 26 U/L (5-36); Granulocytes % (Auto) 90.8 % (38.0-78.0); Lymphocytes # (Auto) 0.5 K/mcL (1.5-4.8); Lymphocytes % (Auto) 5.7 % (15.5-49.0); Mean Cell Volume 98.5 fL (80.0-100.0); Mean Corpuscular HGB Conc 33.9 g/dL (31.0-36.0); Mean Corpuscular Hemoglobin 33.3 pg (26.0-34.0); Monocytes # (Auto) 0.2 K/mcL (0.1-0.9); Monocytes % (Auto) 2.9 % (1.0-12.0); Platelet Count 225 K/mcL (140-440); RBC 3.89 M/mcL (4.00-5.20); Red Cell Distribution Width 12.8 % (11.5-14.5); Uric Acid 3.7 mg/dL (2.5-8.0)
--- NOTE | 2017-03-28 14:01 | Internal Med Progress Note ---
Medical - PN: Subj Patient information: Note initiated : 03/28/17 at 1:59 pm Service Date, if different from initiated Date: [] Patient: Maryjane Gutierrez 56 y/o F admitted on 03/24/17 for Cold Symptoms, SOB /Hypoxia, COPD. Chief Complaint: [] Interval history: Ms. Gutierrez is a 56 year old Female with h/o copd presents ot e ER with sob x 1 week The patient notes she has been strugging with URI symptoms x 2 weeks and has been getting short of breath wheezing x 1-2 weeks. She was seen by her PCP and was placed on prednisone and zithromax and despite taking this medicatin she continued to worsen. She therefore presented to the ER for further management. 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 She also has exposure to kids who were sick. She denies taking the flu vac this season. The patient had watery eyes, sinus congestion, fatigue and malaise. cough with yellowish sputum and progressive shortness of breath over the period of 1-2 weeks. THe patient admits to having some headache and nausea, but no other complaints. In the ER she was hypoxic on presentation, needing 2 L oxygen to maintain osat > 90%, she was given duonebs, HAART treatment, MAg suplhate and IV steroids, but still remained hypoxic, and having poor air entry. ABG done showed Ph 7.41/ 43/58, CXR was neg for pna, labs unremarkable. Patient was therefore admitted to the hospital for further management. March 25 Patient seen examined, overnight events noted, she had a few episodes of panic attack overnight which necessitated use of ativan to which the patient responded well She still is short of breath and is wheezing, cough still present, yellowish sputum present. no other issues. March 26 Patient seen examined, no acute overnight issues still has cough and sob, but much better than day of admission does have anxiety issues at night needing ativan, but no other compliants. still on oxygen March 27 Patient seen examined, no acute overnight issues slept well tolerating po well gets sob and dizzy when she tries to ambulate but breating is better still wheezing and remains on oxygen. March 27 Patient is seen examined, no acute overnight events wanting to go home but still needs oxygen she gets sob with activity breathing is better but still has wheezing, which is much better from before. Pertinent ROS: Denies headache, dizziness Denies chest pain, palpitations improving cough or shortness of breath Denies abdominal pain, nausea or vomiting. - Constitutional Vitals: Vital Signs Temp Pulse Resp BP Pulse Ox 98.0 F 88 16 160/98 94 03/28/17 11:35 03/28/17 13:03 03/28/17 13:03 03/28/17 11:35 03/28/17 11:44 Period Temp Pulse Resp BP Sys/Rodriguez Pulse Ox Last 24 Hr 97.6 F-98.2 F 76-94 16-26 122-160/77-98 92-95 Intake and Output 03/27/17 03/28/17 03/28/17 21:59 05:59 13:59 Intake Total 1180 / 1180 750 / 750 1000 / 1000 Balance 1180 / 1180 750 / 750 1000 / 1000 Weight 169 lb Intake & Output: Intake & Output 03/27/17 03/28/17 03/28/17 21:59 05:59 13:59 Intake Total 1180 / 1180 750 / 750 1000 / 1000 Balance 1180 / 1180 750 / 750 1000 / 1000 Weight 169 lb Intake: Oral 1180 / 1180 750 / 750 1000 / 1000 Other: Meal Lunch Breakfast Percent of Meal Consumed 100% 100% Feeding Ability Independent Independent # Voids 1 1 3 Exam: Constitutional; Afebrile, cooperative, alert, not in distress. Eyes- No icterus, , No periorbital swelling Ears- Ext ear normal, hearing normal to conversation. Neck- Midline trachea, supple Respiratory system: Air Entry equal on both sides, No crackles colt wheeze is improving CVS- Rate rhythm regular, S1,S2 heard, no gallop, no rub. 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 Medical - PN: Obj Da - Labs CBC & Chem 7: 03/28/17 04:52 03/28/17 04:52 Labs: Abnormal Lab Results 03/28/17 03/28/17 03/27/17 04:52 04:52 04:15 RBC 3.89 L Gran % 90.8 H Lymph % (Auto) 5.7 L Gran # Lymph # (Auto) 0.5 L BUN 22 H Glucose 150 H 136 H Phosphorus 4.7 H 03/27/17 03/26/17 04:15 04:00 RBC 3.83 L Gran % 91.3 H 82.9 H Lymph % (Auto) 5.8 L 8.0 L Gran # 9.0 H Lymph # (Auto) 0.5 L 0.9 L BUN Glucose Phosphorus Meds: Medications Acetaminophen (Tylenol) 650 mg PO Q6HP PRN PRN Reason: PAIN/FEVER > 101 Hydrocodone Bitart/Acetaminophen ([place] 5/325mg) 1 tab PO Q4HP PRN PRN Reason: Pain Albuterol/Ipratropium (Duoneb) 3 ml NEB Q4HRT [facility] Last Admin: 03/28/17 13:03 Dose: 3 ml Aspirin (Aspirin) 81 mg PO DAILY [facility] Last Admin: 03/28/17 10:02 Dose: 81 mg Doxycycline Hyclate (Doxycycline Hyclate) 100 mg PO BID [facility] Last Admin: 03/28/17 10:03 Dose: 100 mg Enoxaparin Sodium (Lovenox) 40 mg SQ DAILY [facility] Last Admin: 03/28/17 10:05 Dose: 40 mg Famotidine (Pepcid) 20 mg PO BID [facility] Last Admin: 03/28/17 10:01 Dose: 20 mg Guaifenesin (Robitussin Dm) 10 ml PO Q4HP PRN PRN Reason: Cough Last Admin: 03/28/17 12:03 Dose: 10 ml Lisinopril (Zestril) 5 mg PO DAILY [facility] Last Admin: 03/28/17 10:04 Dose: 5 mg Lorazepam (Ativan) 1 mg PO BIDP PRN PRN Reason: ANXIETY/SEDATION Last Admin: 03/27/17 20:05 Dose: 1 mg Lorazepam (Ativan) 1 mg IV Q2-4HP PRN PRN Reason: ANXIETY/SEDATION Magnesium Hydroxide (Milk Of Magnesia) 30 ml PO DAILYP PRN PRN Reason: Constipation Methylprednisolone Sodium Succinate (Solu-Medrol) 62.5 mg IV Q6 [facility] Last Admin: 03/28/17 11:58 Dose: 62.5 mg Naloxone HCl (Narcan) 0.1 mg IV Q2MIN PRN PRN Reason: Opiate Reversal Ondansetron HCl (Zofran) 4 mg IV Q4HP PRN PRN Reason: Nausea And Vomiting Sodium Chloride (Saline Flush) 10 ml IV Q8 [facility] Last Admin: 03/28/17 11:59 Dose: 10 ml Medical - PN: A/P - Time Spent With Patient Total time spent is greater than 50% in coordination of care (as documented) at patient's floor/unit and/or counseling patient: - Narrative A/P Narrative: A/p Acute hypoxic resp failuire Acute copd exacerbation Depression HTN h/o TIA Anxiety/ Panic attacks Plan pt still needs oxygen improving slowly patient to continue on presetnt treatment if no wheezing tomorrow and still needs oxygen will d/c home on home oxygen. Pt clinically improving, labs ok, continue present treatment Continue Duonebs q4 hrs, IV solumedrol. Doxycycline 100mg bid continue home medications. antidepressants, statin, asa and bp meds. pt reports she takes Ativan at home (not on her home med list) will use prn Ativan for anxiety for now. DVT hep sq Regular diet Full Code. Medical - PN: Qual - Stroke Symptom Onset Unknown: No - VTE Deep Vein Thrombosis/Pulmonary Embolism Present on Admission: No
[2017-03-28] MEDS: LORazepam 1 MG TABLET PO PRN ×2 (14:30→21:12)
[2017-03-29] MEDS: IPRATROPIUM/ALBUTEROL 3 ML AMPUL.NEB NEB SCH ×4 (03:24→15:16)
[2017-03-29] MEDS: methylPREDNISolone SOD SUCC 125 MG/2 ML VIAL IV SCH ×2 (05:57→12:11)
[2017-03-29] MEDS: 0.9 % SODIUM CHLORIDE 10 ML SYRINGE IV SCH ×2 (05:57→12:11)
[2017-03-29 07:07] LABS: Basophils # (Auto) 0 K/mcL (0.0-0.3); Basophils % (Auto) 0 % (0.0-2.0); Eosinophils # (Auto) 0.1 K/mcL (0.0-0.7); Eosinophils % (Auto) 0.8 % (0.0-7.0); Granulocytes % (Auto) 88.4 % (38.0-78.0); Lymphocytes # (Auto) 0.6 K/mcL (1.5-4.8); Lymphocytes % (Auto) 7.2 % (15.5-49.0); Mean Cell Volume 98.1 fL (80.0-100.0); Mean Corpuscular HGB Conc 34.4 g/dL (31.0-36.0); Mean Corpuscular Hemoglobin 33.7 pg (26.0-34.0); Monocytes # (Auto) 0.3 K/mcL (0.1-0.9); Monocytes % (Auto) 3.6 % (1.0-12.0); Platelet Count 237 K/mcL (140-440); RBC 3.83 M/mcL (4.00-5.20)
[2017-03-29 07:47] LABS: ALT/SGPT 13 U/l (0-40); Alkaline Phosphatase 54 U/L (39-117); Bilirubin,Direct < 0.2 mg/dL (0.0-0.3); Blood Urea Nitrogen 22 mg/dl (6-20); Gamma Glutamyl Transpeptidase 25 U/L (5-36); Uric Acid 3.4 mg/dL (2.5-8.0)
[2017-03-29] MEDS: LISINOPRIL 5 MG TABLET PO SCH (08:52)
[2017-03-29] MEDS: DOXYCYCLINE HYCLATE 100 MG TABLET.ORL PO SCH (08:52)
[2017-03-29] MEDS: ASPIRIN 81 MG TAB.CHEW PO SCH (08:52)
[2017-03-29] MEDS: FAMOTIDINE 20 MG TABLET PO SCH (08:52)
[2017-03-29] MEDS: ENOXAPARIN 40 MG/0.4 ML SYRINGE SQ SCH (08:53)
[2017-03-29] MEDS: guaiFENesin/DEXTROMETHORPHAN ORAL SOL PO PRN (09:47)
--- NOTE | 2017-03-29 14:26 | Discharge Summary ---
Medical - DS: Prov Patient information: Note initiated : 03/29/17 at 2:21 pm Service Date, if different from initiated Date: [] Patient: Maryjane Gutierrez 56 y/o F admitted on 03/24/17 for Cold Symptoms, SOB /Hypoxia, COPD. Chief Complaint: [] Date of admission: 03/24/17 14:50 Discharge date: 03/29/17 Primary care physician: Antony Lebron Admitting clinician: April Kerr Consults: 03/24/17 12:32 Consult to Physician [CONS] Stat Comment: Consulting Provider: April Kerr Reason For Exam: Physician to Consult Discharging clinician: April Kerr Medical - DS: Meds - Discharge Medications Prescriptions: Doxycycline Hyclate 100 mg PO BID #6 predniSONE [Prednisone] 10 mg PO QAMCC #75 tab Active and Home Medications: Home Medications aspirin 81 mg tablet,delayed release 81 mg PO QDAY tab 11/18/14 [History Confirmed 03/24/17 Last Taken 03/23/17 08:00] cholecalciferol (vitamin D3) 1,000 unit capsule 1,000 unit PO QDAY cap [History Confirmed 03/24/17 Last Taken 03/23/17 08:00] Vitamin B Complex Vit C No.3 [B Complex with Vitamin C] 1 each PO DAILY [History Confirmed 03/24/17 Last Taken 03/23/17 08:00] ipratropium-albuterol 0.5 mg-3 mg(2.5 mg base)/3 mL nebulization soln 3 ml INHALATION QID PRN 90 Days #1080 ml 04/07/16 [Rx Confirmed 03/24/17 Last Taken 03/24/17 07:15] albuterol sulfate HFA 90 mcg/actuation aerosol inhaler 2 puff INHALATION QID PRN #18 g 08/08/16 [Rx Confirmed 03/24/17 Last Taken 03/24/17 09:00] fluticasone 100 mcg-vilanterol 25 mcg/dose powder for inhalation 1 inh INHALATION Q24H #30 each 12/11/16 [Rx Confirmed 03/24/17 Last Taken 03/23/17 07: 30] Azithromycin [Zithromax] 250 mg PO DAILY 03/24/17 [History Confirmed 03/24/17 Last Taken 03/23/17 08:00] Lisinopril [Zestril] 5 mg PO QDAY 03/24/17 [History Confirmed 03/24/17 Last Taken 03/23/17 08:00] predniSONE [Prednisone] 10 tab PO .Complex 03/24/17 [History Confirmed 03/24/17 Last Taken 03/23/17 08:00] Medical - DS: Hosp Hospital course: Ms. Gutierrez is a 56 year old Female with h/o copd presents to the ER with sob x 1 week ,The patient notes she has been struggling with URI symptoms x 2 weeks and has been getting short of breath wheezing x 1-2 weeks. She was seen by her PCP and was placed on prednisone and zithromax and despite taking this medication she continued to worsen. She therefore presented to the ER for further management. 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 She also has exposure to kids who were sick. She denies taking the flu vac this season. The patient had watery eyes, sinus congestion, fatigue and malaise. cough with yellowish sputum and progressive shortness of breath over the period of 1-2 weeks. In the ER she was hypoxic on presentation, needing 2 L oxygen to maintain osat > 90%, she was given duonebs, HAART treatment, MAg suplhate and IV steroids, but still remained hypoxic, and having poor air entry. ABG done showed Ph 7.41/ 43/58, CXR was neg for pna, labs unremarkable. Patient was therefore admitted to the hospital for further management. COPD exacerbation: due to viral/ bacterial bronchitis, x ray neg, treated with steroids, duonebs and doxycycline, patient responded to the treatment well. It was a slow recovery The patient at the time of discharge was breathing back to baseline, ambulating ad kelvin, but was needing oxygen. her osat was 87% on room air, she will be prescribed 2 L oxygen continuos for her chronic COPD She can be reassessed by her PCP for ongoing need for oxygen therapy as outpatient. smoking cessation reinforced She will be discharged home with a slow steroid taper. The rest of the stay in the hospital was not significant , no changes to home meds except short term use of steroids and antibiotics. Discharge diagnosis: copd exacerbation - Time Spent with Patient Total time spent providing and/or coordinating discharge services: Greater than 30 minutes Medical - DS: Exam - Constitutional Vitals: Vital Signs Temp Pulse Pulse Pulse Resp BP Pulse Ox 03/29/17 12:34 97.7 F 83 18 140/83 93 03/29/17 08:15 97.6 F 18 145/88 93 03/29/17 07:26 93 03/29/17 07:25 85 12 93 03/29/17 07:24 88 16 03/29/17 04:00 97.9 F 96 H 18 133/87 91 03/28/17 23:29 98.4 F 89 18 145/87 92 03/28/17 23:09 80 14 03/28/17 20:00 98.6 F 80 18 151/91 96 03/28/17 19:22 85 14 95 03/28/17 16:34 22 92 03/28/17 16:17 95 03/28/17 16:16 88 16 95 03/28/17 16:14 88 16 03/28/17 15:25 97.9 F 86 20 144/92 93 Intake and Output 03/29/17 03/29/17 03/29/17 05:59 13:59 21:59 Intake Total 975 / 975 Balance 975 / 975 Intake: Oral 975 / 975 Other: Meal Breakfast Percent of Meal Consumed 100% # Voids 1 # Bowel Movements 1 Additional comments: Constitutional; Afebrile, cooperative, alert, not in distress. Eyes- No icterus, , No periorbital swelling Ears- Ext ear normal, hearing normal to conversation. Neck- Midline trachea, supple Respiratory system: Air Entry equal on both sides, No crackles or wheezing, no rhonchi. (very mild intermittent wheeze) CVS- Rate rhythm regular, S1,S2 heard, no gallop, no rub. Abdomen- Soft nontender abdomen, no organomegaly, no tenderness, no guarding or rigidity, [employer]- AOOx3, moving all extremities, no gross focal deficit noted. Medical - DS: Data Procedures and tests throughout hospitalization: X ray chest IMPRESSION: Findings suggesting bronchitis or asthma. Labs on day of discharge: Labs from last 24 hours 03/29/17 03/29/17 05:21 05:21 WBC 8.0 RBC 3.83 L Hgb 12.9 Hct 37.5 MCV 98.1 MCH 33.7 MCHC 34.4 RDW 13.0 Plt Count 237 MPV 7.8 Gran % 88.4 H Lymph % (Auto) 7.2 L [place] % (Auto) 3.6 Eos % (Auto) 0.8 Baso % (Auto) 0 Gran # 7.1 Lymph # (Auto) 0.6 L [place] # (Auto) 0.3 Eos # (Auto) 0.1 Baso # (Auto) 0 Sodium 141 Potassium 4.4 Chloride 98 Carbon Dioxide 29 Anion Gap 14.0 BUN 22 H Creatinine 0.7 GFR Calculation 96 Glucose 138 H Uric Acid 3.4 Calcium 9.3 Phosphorus 4.3 Magnesium 2.0 Total Bilirubin 0.2 Direct Bilirubin < 0.2 GGT 25 AST 12 ALT 13 Alkaline Phosphatase 54 Lactate Dehydrogenase 154 Total Protein 6.0 Albumin 4.0 Globulin 2.0 L Albumin/Globulin Ratio 2.0 Triglycerides 63 Medical - DS: A/P - Patient/Caregiver Discharge Instructions Activity: increase activity as tolerated, wear oxygen at all times Diet: Regular Diet Additional Instructions: FOllow up with PCP in 1 week Take your medication as prescribed You need oxygen, wear it at all times at 2L / Min Do not smoke GO to the ER if chest pain,shortness of breath or any other concerning symptom. Other Amb Orders: Home Oxygen Order Location: Determined By Patient - Follow up Plan Follow up with: Antony Lebron MD [Primary Care Provider] - Disposition: Home, Self-Care Prognosis: Fair Rehab Potential: Fair I certify that the patient requires SNF services: No Overall status at discharge: patient is progressing back to baseline Medical - DS: Qual - VTE Deep Vein Thrombosis/Pulmonary Embolism Present on Admission: No
[2017-03-29] MEDS: LORazepam 1 MG TABLET PO PRN (14:40)
== END 2017-03-29 15:25 | disposition home or self-care (01) | DRG 190 ==
LOC: ED 10:29 → ICU 10:29 → OBSVTOIN 14:50 → ICU 14:50 → MEDSUR 03-26 14:16
PROVIDERS: ADMIT Internal Medicine; ATTEND Internal Medicine